=== PATIENT | male | born 1975 | race Caucasian/White ===

== ENCOUNTER 2016-09-21 13:53 | Outpatient (RCR) | payer BC ==
[~2016-09-21 13:53] MED LIST: CIPR-225 PO; CLN150C PO; HYDR-3714 PO; INDO75CA3; INSU100I14; INSU100I14 SQ; INSU100V6; INSU100V6 SQ; METR500T PO; ONDA8TAB13 PO; OXYC-197 PO; TRAM50TA2 PO
== END 2016-09-25 | disposition home or self-care (01) ==
LOC: WOUNDCARE 13:53
PROVIDERS: ATTEND Surgery
DX: E11.621 Type 2 diabetes mellitus with foot ulcer (principal); E11.42 Type 2 diabetes mellitus with diabetic polyneuropathy; L97.512 Non-pressure chronic ulcer of other part of right foot with fat layer exposed; G40.89 Other seizures
CPT/HCPCS: 11042; 15275; 29445; 87070; 87075; 87077; 87186; 87205; 99212

== ENCOUNTER → 2016-09-26 | Outpatient (CLI) | payer BC ==
--- OUTSIDE RECORDS SUMMARY | 2016-09-26 10:21 | XMS REPORT | Continuity of Care Document ---
Author Author [facility] Organization [facility] Address Unknown Phone Unavailable Allergies Active Description Code Type Severity Reaction Onset Reported/Identified Relationship to Patient Clinical Status Yes No Known Drug Allergies [id number] Drug Allergy Unknown N/ A 07/31/2015 Medications Problems Date Dx Coded Attending Type Code Diagnosis Diagnosed By 05/30/2010 Ot 882.0 05/30/2010 Ot E000.8 05/30/2010 Ot E029.9 05/30/2010 Ot E849.0 05/30/2010 Ot E920.8 05/30/2010 Ot V06.1 06/19/2012 Ot 250.00 DIAB MARLYN WO COMPL, TYPE II OR UNSPEC TY 06/19/2012 Ot 724.1 PAIN IN THORACIC SPINE 06/19/2012 Ot 737.10 KYPHOSIS NOS 06/19/2012 Ot V57.1 PHYSICAL THERAPY NEC 02/26/2013 Ammy RIVERA MD Ot 257.2 TESTICULAR HYPOFUNC NEC 02/11/2014 ASHLEY HENDRIX Ot 250.00 DIAB MARLYN WO COMPL, TYPE II OR UNSPEC TY 02/11/2014 ASHLEY HENDRIX Ot 459.81 VENOUS INSUFFICIENCY NOS 02/11/2014 ASHLEY HENDRIX Ot 682.6 CELLULITIS OF LEG 02/11/2014 ASHLEY HENDRIX Ot V58.67 LONG-TERM (CURRENT) USE OF INSULIN 04/23/2015 Ot 700 04/23/2015 Ot 721.3 04/23/2015 Ot 737.10 04/23/2015 Ot 729.5 04/23/2015 Ot 257.2 04/29/2015 GEORGE DUDLEY MD Ot 250.60 DIAB W NEURO MANIFEST, TYPE II OR UNSPEC 04/29/2015 GEORGE DUDLEY MD Ot 250.80 DIAB W OTH SPEC MANIFEST, TYPE II OR UNS 04/29/2015 GEORGE DUDLEY MD Ot 357.2 NEUROPATHY IN DIABETES 04/29/2015 GEORGE DUDLEY MD Ot 707.15 ULCER OF OTHER PART OF FOOT 04/29/2015 OCTAVIA LIU, GEORGE Ron Ot 720.0 ANKYLOSING SPONDYLITIS 05/01/2015 OCTVAIA LIU, GEORGE Ron Ot 250.60 05/01/2015 OCTAVIA LIU, GEORGE Ron Ot 250.80 05/01/2015 OCTAVIA LIU, GEORGE Ron Ot 357.2 05/01/2015 OCTAVIA LIU, GEORGE Ron Ot 707.15 05/01/2015 OCTAVIA LIU, GEORGE Ron Ot 720.0 06/17/2015 OCTAVIA LIU, GEORGE Ron Ot E11.42 06/17/2015 OCTAVIA LIU, GEORGE Ron Ot E11.621 06/17/2015 OCTAVIA LIU, GEORGE Ron Ot L97.521 06/17/2015 OCTAVIA LIU, GEORGE Ron Ot M45.2 07/30/2015 OCTAVIA LIU, GEORGE Ron Ot E11.42 TYPE 2 DIABETES MELLITUS WITH DIABETIC P 07/30/2015 OCTAVIA LIU, GEORGE Ron Ot E11.621 TYPE 2 DIABETES MELLITUS WITH FOOT ULCER 07/30/2015 OCTAVIA LIU, GEORGE Ron Ot L97.521 NON-PRS CHRONIC ULCER OTH PRT L FOOT NAVARRO 07/30/2015 OCTAVIA LIU, GEORGE Ron Ot M45.2 ANKYLOSING SPONDYLITIS OF CERVICAL REGIO 07/31/2015 Ot 257.2 07/31/2015 OCTAVIA LIU, GEORGE Ron Ot E11.42 07/31/2015 OCTAVIA LIU, GEORGE Ron Ot E11.621 07/31/2015 OCTAVIA LIU, GEORGE Ron Ot L97.521 07/31/2015 OCTAVIA LIU, GEORGE Ron Ot M45.2 07/31/2015 Ot 700 07/31/2015 Ot 721.3 07/31/2015 Ot 737.10 07/31/2015 Ot 729.5 07/31/2015 Ot 257.2 07/31/2015 OCTAVIA LIU, GEORGE Ron Ot E11.42 07/31/2015 OCTAVIA LIU, GEORGE Ron Ot E11.621 07/31/2015 OCTAVIA LIU, GEORGE Ron Ot L97.521 07/31/2015 OCTAVIA LIU, GEORGE Ron Ot M45.2 08/01/2015 QUANG LEONARDO DO Ot K35.80 UNSPECIFIED ACUTE APPENDICITIS 08/07/2015 OCTAVIA LIU, GEORGE Ron Ot E11.42 08/07/2015 OCTAVIA LIU, GEORGE Rno Ot E11.621 08/07/2015 OCTAVIA LIU, GEORGE Ron Ot L97.521 08/07/2015 OCTAVIA LIU, GEORGE Ron Ot M45.2 08/10/2015 OCTAVIA LIU, GEORGE Ron Ot E11.42 08/10/2015 OCTAVIA LIU, GEORGE Ron Ot E11.621 08/10/2015 OCTAVIA LIU, GEORGE Ron Ot L97.521 08/10/2015 OCTAVIA LIU, GEORGE Ron Ot M45.2 08/14/2015 OCTAVIA LIU, GEORGE Ron Ot E11.42 TYPE 2 DIABETES MELLITUS WITH DIABETIC P 08/14/2015 OCTAVIA LIU, GEORGE Ron Ot E11.621 TYPE 2 DIABETES MELLITUS WITH FOOT ULCER 08/14/2015 OCTAVIA LIU, GEORGE Ron Ot L97.521 NON-PRS CHRONIC ULCER OTH PRT L FOOT NAVARRO 08/14/2015 OCTAVIA LIU, GEORGE Ron Ot M45.2 ANKYLOSING SPONDYLITIS OF CERVICAL REGIO 08/17/2015 Ot 700 08/17/2015 Ot 721.3 08/17/2015 Ot 737.10 08/17/2015 Ot 729.5 08/17/2015 Ot 257.2 08/17/2015 OCTAVIA LIU, GEORGE Ron Ot E11.42 08/17/2015 OCTAVIA LIU, GEORGE Ron Ot E11.621 08/17/2015 OCTAVIA LIU, GEORGE Ron Ot L97.521 08/17/2015 OCTAVIA LIU, GEORGE Ron Ot M45.2 08/18/2015 Ot 700 08/18/2015 Ot 721.3 08/18/2015 Ot 737.10 08/18/2015 Ot 729.5 08/18/2015 Ot 257.2 08/18/2015 OCTAVIA LIU, GEORGE Ron Ot E11.42 08/18/2015 OCTAVIA LIU, GEORGE Ron Ot E11.621 08/18/2015 OCTAVIA LIU, GEORGE Ron Ot L97.521 08/18/2015 OCTAVIA LIU, GEORGE Ron Ot M45.2 07/13/2016 OCTAVIA LIU, GEORGE Ron Ot E11.42 TYPE 2 DIABETES MELLITUS WITH DIABETIC P 07/13/2016 OCTAVIA LIU, GEORGE Ron Ot E11.621 TYPE 2 DIABETES MELLITUS WITH FOOT ULCER 07/13/2016 OCTAVIA LIU, GEORGE Ron Ot L97.512 NON-PRS CHRONIC ULCER OTH PRT RIGHT FOOT 08/03/2016 Ot 729.5 PAIN IN LIMB 08/03/2016 Ot 257.2 TESTICULAR HYPOFUNC NEC 08/03/2016 OCTAVIA LIU GEORGE Ron Jeff E11.42 TYPE 2 DIABETES MELLITUS WITH DIABETIC P 08/03/2016 OCTAVIA LIU GEORGE Ron Jeff E11.621 TYPE 2 DIABETES MELLITUS WITH FOOT ULCER 08/03/2016 OCTAVIA LIU GEORGE Ron Jeff L97.512 NON-PRS CHRONIC ULCER OTH PRT RIGHT FOOT 09/14/2016 GEORGE DUDLEY MD, Ot E11.42 TYPE 2 DIABETES MELLITUS WITH DIABETIC P 09/14/2016 GEORGE DUDLEY MD Asaf Jeff E11.621 TYPE 2 DIABETES MELLITUS WITH FOOT ULCER 09/14/2016 GEORGE DUDLEY MD, Ot L97.512 NON-PRS CHRONIC ULCER OTH PRT RIGHT FOOT Procedures Results Test Result Range Bacteria identification in isolate by anaerobe culture - 06/27/16 13:14 Bacteria identification in isolate by anaerobe culture NOANA NRG Gram stain microscopy - 06/27/16 13:14 GRAM STAIN RESULT NO BACTERIA NRG Bacteria identification in wound by culture - 06/27/16 13:14 Bacteria identification in wound by culture [id number] NRG FREE TEXT EXTERNAL (NOT JK) NRG QUANTITY OF GROWTH Scant Growth NRG Bacterial susceptibility panel - 06/27/16 13:14 Oxacillin susceptibility test by minimum inhibitory concentration <= NRG Gentamicin susceptibility test by minimum inhibitory concentration <= NRG Clindamycin susceptibility test by minimum inhibitory concentration >= NRG Erythromycin susceptibility test by minimum inhibitory concentration >= NRG Trimethoprim/sulfamethoxazole susceptibility test by minimum inhibitoryconcentration <= NRG Vancomycin susceptibility test by minimum inhibitory concentration 1 NRG Levofloxacin susceptibility test by minimum inhibitory concentration 0.25 NRG Rifampin susceptibility test by minimum inhibitory concentration <= NRG Tetracycline susceptibility test by minimum inhibitory concentration <= NRG Bacterial susceptibility panel - 06/27/16 13:14 Gentamicin susceptibility test by minimum inhibitory concentration S NRG Erythromycin susceptibility test by minimum inhibitory concentration >= NRG Vancomycin susceptibility test by minimum inhibitory concentration 1 NRG Ampicillin susceptibility test by minimum inhibitory concentration <= NRG Linezolid susceptibility test by minimum inhibitory concentration 2 NRG Bacteria identification in isolate by anaerobe culture - 08/10/16 12:23 Bacteria identification in isolate by anaerobe culture NOANA NRG Gram stain microscopy - 08/10/16 12:23 GRAM STAIN RESULT NO WBC'S OR BACTERIA OBSERVED NRG Bacteria identification in wound by culture - 08/10/16 12:23 Bacteria identification in wound by culture [id number] NRG FREE TEXT EXTERNAL SENSITIVITY REPORTED 08/13 11:05 NRG QUANTITY OF GROWTH Scant Growth NRG Bacterial susceptibility panel - 08/10/16 12:23 Oxacillin susceptibility test by minimum inhibitory concentration 0.5 NRG Gentamicin susceptibility test by minimum inhibitory concentration <= NRG Clindamycin susceptibility test by minimum inhibitory concentration >= NRG Erythromycin susceptibility test by minimum inhibitory concentration >= NRG Trimethoprim/sulfamethoxazole susceptibility test by minimum inhibitoryconcentration <= NRG Vancomycin susceptibility test by minimum inhibitory concentration <= NRG Levofloxacin susceptibility test by minimum inhibitory concentration 0.25 NRG Rifampin susceptibility test by minimum inhibitory concentration <= NRG Tetracycline susceptibility test by minimum inhibitory concentration <= NRG Bacterial susceptibility panel - 08/10/16 12:23 Gentamicin susceptibility test by minimum inhibitory concentration S NRG Erythromycin susceptibility test by minimum inhibitory concentration >= NRG Vancomycin susceptibility test by minimum inhibitory concentration 1 NRG Ampicillin susceptibility test by minimum inhibitory concentration <= NRG Linezolid susceptibility test by minimum inhibitory concentration 2 NRG Encounters ACCT No. Visit Date/Time Discharge Status Pt. Type Provider Facility Loc./Unit Complaint [id number] 09/21/2016 13:53:00 2016 00:01:00 DIS Outpatient GEORGE DUDLEY MD [facility] WOUNDCARE [id number] 07/31/2015 22:30:00 2015 10:00:00 DIS Outpatient QUANG LEONARDO DO [facility] SDC APPENDICITIS [id number] 07/17/2015 09:59:00 2014 00:01:00 DIS Outpatient GEORGE DUDLEY MD [facility] WOUNDCARE [id number] 04/24/2015 10:40:00 2014 00:01:00 DIS Outpatient GEORGE DUDLEY MD [facility] WOUNDCARE [id number] 02/11/2014 11:17:00 2013 13:58:00 DIS Emergency ASHLEY HENDRIX [facility] ER RIGHT LEG REDNESS [id number] 11/28/2012 10:12:00 2012 00:01:00 DIS Outpatient Ammy RIVERA MD [facility] LAB HYPOGENDERISM [id number] 09/26/2016 00:10:00 PEN Preadmit GEORGE DUDLEY MD [facility] WOUNDCARE [id number] 08/14/2015 09:54:00 ACT Outpatient GEORGE DUDLEY MD [facility] WOUNDCARE [id number] 02/27/2013 00:00:00 Document Registration [id number] 04/26/2012 12:53:00 Document Registration [id number] 03/22/2012 09:41:00 Document Registration [id number] 01/04/2011 15:18:00 Document Registration [id number] 05/30/2010 15:28:00 Document Registration
--- NOTE | 2016-09-26 11:33 | Diagnostic Imaging Report ---
PROCEDURE: US Carotid Duplex Bilateral. TECHNIQUE: Multiple real-time grayscale images were obtained over the carotid arteries in various projections bilaterally. Additional duplex Doppler and color Doppler images were also obtained. INDICATION: Right arm numbness. Episodes of slurred speech. FINDINGS: Grayscale images demonstrate plaque along the carotid bifurcation bilaterally. Color Doppler demonstrates patency of the common, internal, and external carotid arteries on both sides. There is antegrade the flow in the vertebral artery noted bilaterally. Peak systolic velocities in the right ICA are 68, 77, and 81 cm/s from proximal/ distal and on the left side 70, 88, and 90 cm/s. ICA/CCA ratios on the right are up to 0.8 cm and on the left are up to 0.9 cm. IMPRESSION: Atherosclerotic plaque at the carotid bifurcation bilaterally with submitted underlying stenosis less than 40% bilaterally. Dictated by: Dictated on workstation # [id number]
--- NOTE | 2016-09-27 10:37 | ECHOCARDIOGRAPHY REPORT ---
PROCEDURE PHYSICIAN: BILLIE CORNEJO DATE OF PROCEDURE: 09/26/2016 TWO DIMENSIONAL ECHOCARDIOGRAM REPORT PRIMARY PHYSICIAN: OTHER PHYSICIAN: REFERRING PHYSICIAN: ORDERING PHYSICIAN: ATTENDING PHYSICIAN: Dr. Magdalene Junior FAMILY PHYSICIAN: READING PHYSICIAN: INDICATION FOR THE PROCEDURE: MEASUREMENTS DERIVED VALUES LV DIAMETER (LAX) NORMALS NORMALS Diastolic (3.6-5.2) Eject. Fract. (60%+/-6%) Systolic (2.3-3.9) Diastolic Vol. % Shortening (0.22-0.42) Systolic Vol. Aortic Root IVS THICKNESS Diastolic (0.6-1.1) LVPW THICKNESS Diastolic (0.6-1.1) LA DIAMETER Systolic (2.1-3.7) FINDINGS: 1. Sinus rhythm. 2. Left atrial dimensions are mildly enlarged. Left atrial diameter is 4.3 cm. 3. Aortic root dimensions are normal. 4. Left ventricular systolic function is preserved. LV EF is 60%. No LVH is present. 5. Wall motion is normal. 6. Right heart size and function is normal. 7. There is no evidence of pericardial effusion. 8. Diastolic function is normal. 9. IVC is not well visualized. VALVULAR STRUCTURE OF THE HEART: There is trace tricuspid regurgitation and trace mitral regurgitation. RVSP is 17 mmHg. The aortic valve and pulmonic valve do not have any pathology. CONCLUSION: 1. LV and RV size and function is normal. 2. LV EF is 60 to 65%. 3. No significant valvular heart disease. 4. Normal PA pressure. Job ID: [id number] Dictated Date: 09/26/2016 15:05:15 Robotype Operator Date: 09/27/2016 10:32:24 / summer
== END ==
LOC: RAD 10:17
PROVIDERS: ATTEND Internal Medicine
DX: I65.23 Occlusion and stenosis of bilateral carotid arteries (principal)
CPT/HCPCS: 93306; 93880

== ENCOUNTER → 2016-09-28 | Outpatient (CLI) | payer BC ==
--- OUTSIDE RECORDS SUMMARY | 2016-09-28 16:03 | XMS REPORT | Continuity of Care Document ---
Author Author [facility] Organization [facility] Address Unknown Phone Unavailable Allergies Active Description Code Type Severity Reaction Onset Reported/Identified Relationship to Patient Clinical Status Yes No Known Drug Allergies [id number] Drug Allergy Unknown N/ A 07/31/2015 Medications [...] 729.5 07/31/2015 Ot 257.2 07/31/2015 OCTAVIA LIU, EGORGE Ron Ot E11.42 07/31/2015 OCTAVIA LIU, GEORGE [...] OCTAVIA LIU, GEORGE Ron Ot E11.42 08/17/2015 OCTVAIA LIU, GEORGE Ron Ot E11.621 08/17/2015 OCTAVIA [...] 13:14 Bacteria identification in wound by culture [id number] NR FREE TEXT EXTERNAL (NOT JK) NRG [...] 12:23 Bacteria identification in wound by culture [id number] NRG FREE TEXT EXTERNAL SENSITIVITY REPORTED 08/13 [...] test by minimum inhibitory concentration 2 NRG Gram stain microscopy - 09/27/16 10:22 GRAM STAIN RESULT NO WBC'S OR BACTERIA OBSERVED NRG Encounters ACCT No. Visit Date/Time Discharge Status Pt. Type Provider Facility Loc./Unit Complaint [id number] 09/21/2016 13:53:00 2016 00:01:00 DIS Outpatient OCTAVIA LIU, GEORGE Ron [facility] WOUNDCARE [id number] 07/31/2015 22:30:00 2015 10:00:00 DIS Outpatient QUANG LEONARDO DO [facility] SDC APPENDICITIS [id number] 07/17/2015 09:59:00 2014 00:01:00 DIS Outpatient GEORGE DUDLEY MD [facility] WOUNDCARE [id number] 04/24/2015 10:40:00 2014 00:01:00 DIS Outpatient GEORGE DUDLEY MD [facility] WOUNDCARE [id number] 02/11/2014 11:17:00 2013 13:58:00 DIS Emergency ASHLEY HENDRIX [facility] ER RIGHT LEG REDNESS [id number] 11/28/2012 10:12:00 2012 00:01:00 DIS Outpatient Ammy RIVERA MD [facility] LAB HYPOGENDERISM [id number] 09/26/2016 10:17:00 ACT Outpatient ANGELA PAULSON DO [facility] RAD G54.9 [id number] 09/26/2016 00:10:00 PEN Preadmit GEORGE DUDLEY MD [facility] WOUNDCARE [id number] 08/14/2015 09:54:00 ACT Outpatient GEORGE DUDLEY MD [facility] WOUNDCARE [id number] 02/27/2013 00:00:00 Document Registration [id number] 04/26/2012 12:53:00 Document Registration [id number] 03/22/2012 09:41:00 Document Registration [id number] 01/04/2011 15:18:00 Document Registration [id number] 05/30/2010 15:28:00 Document Registration
== END ==
LOC: RAD 15:59
PROVIDERS: ATTEND Internal Medicine
DX: G45.9 Transient cerebral ischemic attack, unspecified (principal); C38.4 Malignant neoplasm of pleura; M45.9 Ankylosing spondylitis of unspecified sites in spine

== ENCOUNTER → 2016-10-12 | Outpatient (CLI) | payer BC ==
--- OUTSIDE RECORDS SUMMARY | 2016-10-12 11:08 | XMS REPORT | Continuity of Care Document ---
Author Author [facility] Organization [facility] Address Unknown Phone Unavailable Allergies Active Description Code Type Severity Reaction Onset Reported/Identified Relationship to Patient Clinical Status Yes No Known Drug Allergies [id number] Drug Allergy Unknown N/ A 07/31/2015 Medications [...] MELLITUS WITH DIABETIC P 08/03/2016 GEORGE DUDLEY MD, Ot E11.621 TYPE 2 DIABETES MELLITUS WITH FOOT ULCER 08/03/2016 GEORGE DUDLEY MD Ot L97.512 NON-PRS CHRONIC ULCER OTH PRT RIGHT FOOT 09/14/2016 GEORGE DUDLYE MD, Ot E11.42 TYPE 2 DIABETES MELLITUS [...] MELLITUS WITH FOOT ULCER 09/25/2016 GEORGE DUDLEY MD Ot G40.89 OTHER SEIZURES 09/25/2016 GEORGE DUDLEY MD Ot L97.512 NON-PRS CHRONIC ULCER OTH PRT RIGHT FOOT 09/26/2016 Ot 729.5 PAIN IN LIMB 09/26/2016 Ot 257.2 TESTICULAR HYPOFUNC NEC 09/26/2016 GEORGE DUDLEY MD Ot E11.42 TYPE 2 DIABETES MELLITUS WITH DIABETIC P 09/26/2016 GEORGE DUDLEY MD, Ot E11.621 TYPE 2 DIABETES MELLITUS WITH FOOT ULCER 09/26/2016 GEORGE DUDLEY MD Ot L97.512 NON-PRS CHRONIC ULCER OTH PRT RIGHT FOOT 09/27/2016 GEORGE DUDLEY MD Ot E11.42 TYPE 2 DIABETES MELLITUS WITH DIABETIC P 09/27/2016 GEORGE DUDLEY MD Ot E11.621 TYPE 2 DIABETES MELLITUS WITH FOOT ULCER 09/27/2016 GEORGE DUDLEY MD Ot L97.512 NON-PRS CHRONIC ULCER OTH PRT RIGHT FOOT 09/27/2016 ANGELA PAULSON DO Ot I65.23 OCCLUSION AND STENOSIS OF BILATERAL TAN 09/27/2016 ANGELA PAULSNO DO Ot I65.23 OCCLUSION AND STENOSIS OF BILATERAL TAN 09/28/2016 GEORGE DUDLEY MD Ot E11.42 TYPE 2 DIABETES MELLITUS WITH DIABETIC P 09/28/2016 GEORGE DUDLEY MD Ot E11.621 TYPE 2 DIABETES MELLITUS WITH FOOT ULCER 09/28/2016 GEORGE DUDLEY MD Ot G40.89 OTHER SEIZURES 09/28/2016 GEORGE DUDLEY MD Ot L97.512 NON-PRS CHRONIC ULCER OTH PRT RIGHT FOOT 09/28/2016 GEORGE DUDLEY MD Ot E11.42 TYPE 2 DIABETES MELLITUS WITH DIABETIC P 09/28/2016 GEORGE DUDLEY MD Ot E11.621 TYPE 2 DIABETES MELLITUS WITH FOOT ULCER 09/28/2016 GEORGE DUDLEY MD Ot L97.512 NON-PRS CHRONIC ULCER OTH PRT RIGHT FOOT 09/29/2016 PAULSON DO ANGELA Ot 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 09/29/2016 PAULSON DO ANGELA Ot G45.9 TRANSIENT CEREBRAL ISCHEMIC ATTACK, UNSP 09/29/2016 PAULSON DO ANGELA Ot M45.9 ANKYLOSING SPONDYLITIS OF UNSPECIFIED SI 09/29/2016 PAULSON DO ANGELA Ot 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 09/29/2016 PAULSON DO ANGELA Ot G45.9 TRANSIENT CEREBRAL ISCHEMIC ATTACK, UNSP 09/29/2016 PAULSON DO ANGELA Ot M45.9 ANKYLOSING SPONDYLITIS OF UNSPECIFIED SI Procedures Results Test Result Range Bacteria identification in isolate by anaerobe culture - 06/27/16 13:14 Bacteria identification in isolate by anaerobe culture NOANA NRG Gram stain microscopy - 06/27/16 13:14 GRAM STAIN RESULT NO BACTERIA NRG Bacteria identification in wound by culture - 06/27/16 13:14 Bacteria identification in wound by culture [id number] NRG FREE TEXT EXTERNAL (NOT JK) NRG [...] 12:23 Bacteria identification in wound by culture [id number] NRG FREE TEXT EXTERNAL SENSITIVITY REPORTED 08/13 [...] identification in isolate by anaerobe culture - 09/27/16 10:22 Bacteria identification in isolate by anaerobe culture NOANA NRG Gram stain microscopy - 09/27/16 10:22 GRAM STAIN RESULT NO WBC'S OR BACTERIA OBSERVED NRG Bacteria identification in wound by culture - 09/27/16 10:22 Bacteria identification in wound by culture [id number] NRG FREE TEXT EXTERNAL (NOT JK) NRG QUANTITY OF GROWTH Scant Growth NRG MRSA AGAR Screening test for MRSA is NEGATIVE (Final to follow) NRG Bacterial susceptibility panel - 09/27/16 10:22 Oxacillin susceptibility test by minimum inhibitory concentration <= NRG Gentamicin susceptibility test by minimum inhibitory concentration <= NRG Clindamycin susceptibility test by minimum inhibitory concentration >= NRG Erythromycin susceptibility test by minimum inhibitory concentration >= NRG Trimethoprim/sulfamethoxazole susceptibility test by minimum inhibitoryconcentration <= NRG Vancomycin susceptibility test by minimum inhibitory concentration 1 NRG Levofloxacin susceptibility test by minimum inhibitory concentration <= NRG Rifampin susceptibility test by minimum inhibitory concentration <= NRG Tetracycline susceptibility test by minimum inhibitory concentration <= NRG Encounters ACCT No. Visit Date/Time Discharge Status Pt. Type Provider Facility Loc./Unit Complaint [id number] 09/21/2016 13:53:00 2016 00:01:00 DIS Outpatient GEORGE DUDLEY MD [facility] WOUND[facility] [id number] 07/31/2015 22:30:00 2015 10:00:00 DIS Outpatient QUANG LEONARDO DO [facility] SDC APPENDICITIS [id number] 07/17/2015 09:59:00 2014 00:01:00 DIS Outpatient GEORGE DUDLEY MD [facility] WOUND[facility] [id number] 04/24/2015 10:40:00 2014 00:01:00 DIS Outpatient GEORGE DUDLEY MD [facility] WOUND[facility] [id number] 02/11/2014 11:17:00 2013 13:58:00 DIS Emergency ASHLEY HENDRIX [facility] ER RIGHT LEG REDNESS [id number] 11/28/2012 10:12:00 2012 00:01:00 DIS Outpatient Ammy RIVERA MD [facility] LAB HYPOGENDERISM [id number] 10/12/2016 09:44:00 ACT Outpatient GEORGE DUDLEY MD [facility] WOUND[facility]ARE [id number] 09/28/2016 15:59:00 ACT Outpatient ANGELA PAULSON DO [facility] RAD G45.9 [id number] 09/26/2016 10:17:00 ACT Outpatient ANGELA PAULSON DO [facility] RAD G54.9 [id number] 08/14/2015 09:54:00 ACT Outpatient GEORGE DUDLEY MD [facility] WOUND[facility] [id number] 02/27/2013 00:00:00 Document Registration [id number] 04/26/2012 12:53:00 Document Registration [id number] 03/22/2012 09:41:00 Document Registration [id number] 01/04/2011 15:18:00 Document Registration [id number] 05/30/2010 15:28:00 Document Registration
--- NOTE | 2016-10-12 14:48 | Diagnostic Imaging Report ---
INDICATION: Diabetic ulcers on both feet.. TECHNIQUE: Three views of the bilateral feet at 11:34 AM. CORRELATION STUDY: 09/12/2012. FINDINGS: LEFT FOOT: There is asymmetric soft tissue edema suggested about the great toe of the left foot as well as the distal aspect of the second toe. A BB was placed adjacent to the distal phalanx of the great toe. No acute bony abnormality or jordon bony destructive type change are suggested. There is pes planus alignment present. There are degenerative changes through the mid and distal tarsal bones. Prominent calcaneal spur formation. RIGHT FOOT: Marker was placed along the plantar aspect of the distal right fifth metatarsal. This osseous structure appears to be intact without evidence for acute bony abnormality or jordon bony destructive type change. There is, however, deformity at the proximal fifth metatarsal, compatible with a healed fracture. There also appear to be likely reparative healing changes noted about the base of the fourth metatarsal. There is a small lucency through the lateral cortex of the proximal shaft of the fifth metatarsal. The possibility of a new and/or stress type injury is not excluded. There is rather significant degenerative change of the mid and distal tarsal bones with some loss of normal configuration and overall appearance about the distal tarsal row. This appears a change from the prior study and may be reflective of likely developing neuropathic/Charcot foot. Prominent calcaneal spur. IMPRESSION: 1. Negative for jordon erosive type change to suggest osteomyelitis, particularly in the region of the first great toe and right fifth metatarsal. 2. Findings compatible with healing fracture deformities at the base of the fifth and fourth metatarsals of the right foot. However, there is a small area of lucency through the lateral cortex proximal right fifth metatarsal. The possibility of a stress type injury is not excluded. Correlate with any symptoms in this region. 3. 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 4. Prominent bilateral calcaneal spurring. Dictated by: Dictated on workstation # [id number]
== END ==
LOC: RAD 11:02
PROVIDERS: ATTEND Surgery
DX: S92.354D Nondisplaced fracture of fifth metatarsal bone, right foot, subsequent encounter for fracture with routine healing (principal); S92.345D Nondisplaced fracture of fourth metatarsal bone, left foot, subsequent encounter for fracture with routine healing; M19.071 Primary osteoarthritis, right ankle and foot; M19.072 Primary osteoarthritis, left ankle and foot; M77.31 Calcaneal spur, right foot; M77.32 Calcaneal spur, left foot; E11.621 Type 2 diabetes mellitus with foot ulcer; E11.42 Type 2 diabetes mellitus with diabetic polyneuropathy; L97.512 Non-pressure chronic ulcer of other part of right foot with fat layer exposed; L97.522 Non-pressure chronic ulcer of other part of left foot with fat layer exposed; X58.XXXA Exposure to other specified factors, initial encounter; Y99.8 Other external cause status

== ENCOUNTER → 2016-10-19 | Outpatient (CLI) | payer BC ==
--- NOTE | 2016-10-19 13:49 | Diagnostic Imaging Report ---
EXAMINATION: Right lower extremity duplex venous ultrasound. TECHNIQUE: DVT protocol. Multiple sonographic images with color Doppler and waveform interrogation were performed of the right lower extremity veins with compression and augmentation maneuvers. INDICATION: Right leg pain. FINDINGS: The right lower extremity veins from the groin to below the knee veins were examined with normal color-flow, compressibility and normal waveform demonstrated. The great saphenous vein is patent. IMPRESSION: No evidence of DVT in the right lower extremity. Dictated by: Dictated on workstation # [id number]
== END ==
LOC: RAD 12:50
PROVIDERS: ATTEND Internal Medicine
DX: M79.604 Pain in right leg (principal)

== ENCOUNTER 2016-10-26 14:00 | Outpatient (RCR) | payer BC ==
--- OUTSIDE RECORDS SUMMARY | 2016-09-27 09:59 | XMS REPORT | Continuity of Care Document ---
Author Author [facility] Organization [facility] Address Unknown Phone Unavailable Allergies Active Description Code Type Severity Reaction Onset Reported/Identified Relationship to Patient Clinical Status Yes No Known Drug Allergies [id number] Drug Allergy Unknown N/ A 07/31/2015 Medications [...] HENDRIX Ot 682.6 CELLULITIS OF LEG 02/11/2014 AHSLEY HENDRIX Ot V58.67 LONG-TERM (CURRENT) USE OF [...] GEORGE Ron Ot 720.0 ANKYLOSING SPONDYLITIS 05/01/2015 OCTAVIA LIU, GEORGE Ron Ot 250.60 05/01/2015 OCTAVIA [...] Ron Ot E11.42 08/07/2015 OCTAVIA LIU, GEORGE Ron Ot E11.621 08/07/2015 OCTAVIA LIU, GEORGE Ron [...] 08/03/2016 Ot 257.2 TESTICULAR HYPOFUNC NEC 08/03/2016 GEORGE DUDLEY MD Ot E11.42 TYPE 2 DIABETES MELLITUS WITH DIABETIC P 08/03/2016 GEORGE DUDLEY MD Ot E11.621 TYPE 2 DIABETES MELLITUS WITH FOOT ULCER 08/03/2016 GEORGE DUDLEY MD Ot L97.512 NON-PRS CHRONIC ULCER OTH PRT RIGHT FOOT 09/14/2016 GEORGE DUDLEY MD, Ot E11.42 TYPE 2 DIABETES MELLITUS WITH DIABETIC P 09/14/2016 GEORGE DUDLEY MD, Ot E11.621 TYPE 2 DIABETES MELLITUS WITH FOOT ULCER 09/14/2016 GEORGE DUDLEY MD Ot L97.512 NON-PRS CHRONIC ULCER OTH PRT RIGHT FOOT 09/25/2016 GEORGE DUDLEY MD, Ot E11.42 TYPE 2 DIABETES MELLITUS WITH DIABETIC P 09/25/2016 GEORGE DUDLEY MD, Ot E11.621 TYPE 2 DIABETES MELLITUS WITH FOOT ULCER 09/25/2016 GEORGE DUDLEY MD, Ot L97.512 NON-PRS CHRONIC ULCER OTH PRT RIGHT FOOT 09/26/2016 Ot 729.5 PAIN IN LIMB 09/26/2016 Ot 257.2 TESTICULAR HYPOFUNC NEC 09/26/2016 GEORGE DUDLEY MD Ot E11.42 TYPE 2 DIABETES MELLITUS WITH DIABETIC P 09/26/2016 GEORGE DUDLEY MD Ot E11.621 TYPE 2 DIABETES MELLITUS WITH FOOT ULCER 09/26/2016 GEORGE DUDLEY MD Ot L97.512 NON-PRS CHRONIC ULCER OTH PRT RIGHT FOOT Procedures Results Test Result Range Bacteria identification in isolate by anaerobe culture - 06/27/16 13:14 Bacteria identification in isolate by anaerobe culture NOANA NRG Gram stain microscopy - 06/27/16 13:14 GRAM STAIN RESULT NO BACTERIA NRG Bacteria identification in wound by culture - 06/27/16 13:14 Bacteria identification in wound by culture [id number] NR FREE TEXT EXTERNAL (NOT JK) NRG QUANTITY OF GROWTH Scant Growth NR Bacterial susceptibility panel - 06/27/16 13:14 Oxacillin [...] 12:23 Bacteria identification in wound by culture [id number] NRG FREE TEXT EXTERNAL SENSITIVITY REPORTED 08/13 [...] Status Pt. Type Provider Facility Loc./Unit Complaint [id number] 09/21/2016 13:53:00 2016 00:01:00 DIS Outpatient GEORGE DUDLEY MD [facility] WOUNDCARE [id number] 07/31/2015 22:30:00 2015 10:00:00 DIS Outpatient QUANG LEONARDO DO [facility] SDC APPENDICITIS [id number] 07/17/2015 09:59:00 2014 00:01:00 DIS Outpatient GEORGE DUDLEY MD [facility] WOUNDCARE [id number] 04/24/2015 10:40:00 2014 00:01:00 DIS Outpatient GEORGE DUDLEY MD [facility] WOUNDCARE [id number] 02/11/2014 11:17:00 2013 13:58:00 DIS Emergency ASHLEY HENDRIX [facility] ER RIGHT LEG REDNESS [id number] 11/28/2012 10:12:00 2012 00:01:00 DIS Outpatient Ammy RIVERA MD [facility] LAB HYPOGENDERISM [id number] 09/26/2016 10:17:00 ACT Outpatient ANGELA PAULSON DO [facility] RAD G54.9 [id number] 09/26/2016 00:10:00 PEN Preadmit GEORGE DUDLEY MD [facility] WOUNDCARE [id number] 08/14/2015 09:54:00 ACT Outpatient GEORGE DUDLEY MD [facility] WOUNDCARE [id number] 02/27/2013 00:00:00 Document Registration [id number] 04/26/2012 12:53:00 Document Registration [id number] 03/22/2012 09:41:00 Document Registration [id number] 01/04/2011 15:18:00 Document Registration [id number] 05/30/2010 15:28:00 Document Registration
== END 2016-10-26 16:00 | disposition home or self-care (01) ==
LOC: WOUNDCARE 14:00
PROVIDERS: ATTEND Surgery
DX: E11.621 Type 2 diabetes mellitus with foot ulcer (principal); E11.42 Type 2 diabetes mellitus with diabetic polyneuropathy; L97.512 Non-pressure chronic ulcer of other part of right foot with fat layer exposed
CPT/HCPCS: 11042; 87070; 87075; 87077; 87186; 87205; 99212

== ENCOUNTER → 2020-03-17 | Outpatient (CLI) | payer BC ==
[~2020-03-17] MED LIST changes: -OXYC-197 PO; +OXYC1TAB87 PO
--- NOTE | 2020-03-17 15:08 | Diagnostic Imaging Report ---
INDICATION: Slammed middle finger in a door 6-7 weeks ago with continued pain. TECHNIQUE: Three views of the left hand. CORRELATION STUDY: None FINDINGS: There is a small fracture along the dorsal, articular base of the distal phalanx of the middle finger. The main fracture fragment is displaced dorsally with the remainder of the main portion of the finger displaced anteriorly and slightly retracted. There is somewhat of an eroded cortically marginated appearance at the articular base. At least 6 mm of diastasis of a fragment is present. There is partial flexure deformity at the distal interphalangeal joint. Mild soft tissue edema at the distal aspect of the middle finger. The remainder of the osseous structures of the left hand is otherwise intact and unremarkable. IMPRESSION: Nonacute fracture involving the dorsal articular base of the distal phalanx of the middle finger. The interphalangeal joint appears to be held in partial flexure. This is consistent with a likely subacute fracture. There is prominent diastasis noted between the fracture lines. Dictated by: Dictated on workstation # [id number]
== END ==
LOC: RAD 14:03
PROVIDERS: ATTEND Internal Medicine
DX: S62.633A Displaced fracture of distal phalanx of left middle finger, initial encounter for closed fracture (principal)
CPT/HCPCS: 73130

== ENCOUNTER 2021-03-15 05:30 | Outpatient (RCR) | payer BC ==
[~2021-03-15] VITALS: Ht 182.9 cm; Wt 137.9 kg
[~2021-03-15 05:30] MED LIST changes: +AMLO-250 PO; +ASPI-1238 PO; +ATOR20TA66 PO; +EXEN2AUT SQ; +INDO75CA3 PO
[2021-03-16] MEDS ORDERED: PANT40TA2 PO (11:59)
== END 2021-03-15 08:47 | disposition home or self-care (01) ==
LOC: PREOP 05:30
PROVIDERS: ATTEND Surgery
DX: Z01.818 Encounter for other preprocedural examination (principal); Z20.822 Contact with and (suspected) exposure to COVID-19; Z12.11 Encounter for screening for malignant neoplasm of colon; K21.9 Gastro-esophageal reflux disease without esophagitis
CPT/HCPCS: 87635

== ENCOUNTER 2021-03-16 09:53 | Day surgery (SDC) | payer BC ==
[~2021-03-16] VITALS: Ht 183 cm; Wt 138.0 kg
[2021-03-16] MEDS ORDERED: LACTATED RINGERS 1,000 ML IV STA (09:55)
[2021-03-16] MEDS ORDERED: HURRICAINE EXT TUBE (BENZOCAINE) XX PRN (10:00)
[2021-03-16 10:15] VITALS: BP 170/95
[2021-03-16] MEDS ORDERED: MIDAZOLAM 2 MG/2 ML (VERSED) VIAL ONE (11:12)
[2021-03-16] MEDS ORDERED: PROPOFOL INJECTION 50 ML IV ONE (11:12)
[2021-03-16 11:55] VITALS: BP 141/74
--- NOTE | 2021-03-16 11:58 | Progress Note-Post Operative ---
Post-Operative Progess Note Surgeon (s)/Foreign Policy Officer (s) Surgeon SUGEY HUGHES DO Foreign Policy Officer: na Pre-Operative Diagnosis gerd ,screening colonoscopy Post-Operative Diagnosis reflux esophagitis, sigmoid polyp Procedure & Operative Findings Date of Procedure 03/16/21 Procedure Performed/Findings egd c biopsies, colonoscopy c snare polypectomy Anesthesia Type per potato chip frier Estimated Blood Loss Estimated blood loss (mL): none Specimens/Packing Specimens Removed antrum, ge, sigmoid polyp SUGEY HUGHES DO Mar 16, 2021 11:58
[2021-03-16] MEDS ORDERED: PANT40TA2 PO (11:59)
--- NOTE | 2021-03-16 11:59 | Discharge Inst-Simple/Standard ---
Discharge Inst-Standard Discharge Medications New, Converted or Re-Newed RX: Transmitted to Pharmacy Patient Instructions/Follow Up Plan of Care/Instructions/FU: Michael 3 weeks Activity as Tolerated: Yes Discharge Diet: Regular Diet SUGEY HUGHES DO Mar 16, 2021 11:59
[2021-03-16 12:00] VITALS: BP 132/70
[2021-03-16 12:30] VITALS: BP 140/70
--- NOTE | 2021-03-16 13:21 | OPERATIVE REPORT ---
DATE OF SERVICE: 03/16/2021 PREOPERATIVE DIAGNOSES: Gastroesophageal reflux disease, screening colonoscopy. POSTOPERATIVE DIAGNOSES: Reflux esophagitis, sigmoid colon polyp. PROCEDURE: EGD with biopsies, colonoscopy with snare polypectomy. SURGEON: Viraj Rodriguez DO ANESTHESIA: Per GROUND HAND. ESTIMATED BLOOD LOSS: None. COMPLICATIONS: None. INDICATIONS: The patient is a 46-year-old male with GERD and needing screening colonoscopy. He understands risks and benefits of procedure and wished to proceed with procedure. Consent was signed in the chart. DESCRIPTION OF PROCEDURE: The patient was taken to the endoscopy suite, placed in left lateral recumbent position. Timeout was performed. Scope was inserted in mouth, down the esophagus, stomach and into the duodenum without difficulty. There were no polyps, masses or ulcerations within the duodenum. Scope was slowly retracted back into stomach where it was further insufflated. Some slight erythematous changes. No polyps, masses or ulcerations. Biopsy of the antrum was obtained. Scope was retroflexed noting no other pathology. Scope was returned to its normal position, slowly withdrawn to distal esophagus, which demonstrated changes of reflux esophagitis and a linear ulceration, biopsy of this area was obtained. Scope was then slowly retracted back until completely removed, noting no other pathology. Digital rectal exam was performed. No palpable polyps, masses or ulcerations. Scope was inserted in the rectum and advanced all the way to cecum with minimal difficulty. Prep was adequate. Scope was then slowly retracted back. No polyps, masses or ulcerations in the cecum, ascending, transverse, descending colon. In sigmoid colon, a larger polyp was present, which snare polypectomy was performed. Scope was used to suction retracted out for obtaining. Scope was reinserted into the area of the sigmoid where this was removed. Scope was then slowly retracted back through the sigmoid colon without any other pathology noted. Once in the rectum, scope was retroflexed noting no other pathology. Scope was returned to its normal position, slowly withdrawn until completely removed. The patient tolerated procedure well without any complications, taken to recovery room in stable condition. RECOMMENDATIONS: The patient will follow up on pathology in 2 to 3 weeks. Any issues before that be seen at that time. We would recommend repeat colonoscopy in one year. We will start Protonix 40 mg daily. Job ID: [id number] DocumentID: [id number] Dictated Date: 03/16/2021 12:02:22 Special Events Director Date: 03/16/2021 13:21:00 Dictated By: DO RAJINDER TOVAR
--- NOTE | 2021-03-16 14:56 | Anesthesia-General Post-Op ---
MAC Patient Condition Mental Status/LOC: Same as Preop Cardiovascular: Satisfactory Nausea/Vomiting: Absent Respiratory: Satisfactory Pain: Controlled Complications: Absent Post Op Complications Complications None Follow Up Care/Instructions Patient Instructions None needed. Anesthesiology Discharge Order Discharge Order Patient is doing well, no complaints, stable vital signs, no apparent adverse anesthesia problems. No complications reported per nursing. YULISA BOSS CRNA Mar 16, 2021 14:56
== END 2021-03-16 12:30 | disposition home or self-care (01) ==
LOC: ENDO 09:53
PROVIDERS: ATTEND Surgery
DX: Z12.11 Encounter for screening for malignant neoplasm of colon (principal); D12.5 Benign neoplasm of sigmoid colon; K21.00 Gastro-esophageal reflux disease with esophagitis, without bleeding; I10 Essential (primary) hypertension; J45.909 Unspecified asthma, uncomplicated; E11.9 Type 2 diabetes mellitus without complications; E66.01 Morbid (severe) obesity due to excess calories; Z68.41 Body mass index [BMI] 40.0-44.9, adult; Z90.89 Acquired absence of other organs; Z79.899 Other long term (current) drug therapy; Z79.4 Long term (current) use of insulin; Z79.82 Long term (current) use of aspirin; Z79.1 Long term (current) use of non-steroidal anti-inflammatories (NSAID); Z79.02 Long term (current) use of antithrombotics/antiplatelets
CPT/HCPCS: 82947; 88305

== ENCOUNTER → 2021-12-28 | Outpatient (CLI) | payer BC ==
[~2021-12-28] MED LIST changes: +INDO75CA10; +INDO75CA10 PO; -INDO75CA3; -INDO75CA3 PO; +PANT40TA2 PO
== END ==
LOC: WOUNDCARE 08:52
PROVIDERS: ATTEND Family Medicine
DX: L97.512 Non-pressure chronic ulcer of other part of right foot with fat layer exposed (principal); E11.621 Type 2 diabetes mellitus with foot ulcer; E11.40 Type 2 diabetes mellitus with diabetic neuropathy, unspecified; M14.671 Charcot's joint, right ankle and foot; E66.01 Morbid (severe) obesity due to excess calories; E11.65 Type 2 diabetes mellitus with hyperglycemia
CPT/HCPCS: A6197; G0463; 99213

== ENCOUNTER → 2022-01-07 | Outpatient (CLI) | payer BC | LOC: WOUNDCARE 08:52 | PROVIDERS: ATTEND Family Medicine | DX: L97.512 Non-pressure chronic ulcer of other part of right foot with fat layer exposed (principal); E11.621 Type 2 diabetes mellitus with foot ulcer; E11.40 Type 2 diabetes mellitus with diabetic neuropathy, unspecified; M14.671 Charcot's joint, right ankle and foot; E66.01 Morbid (severe) obesity due to excess calories; E11.65 Type 2 diabetes mellitus with hyperglycemia | CPT/HCPCS: 11042; G0463 ==

== ENCOUNTER → 2022-01-14 | Outpatient (CLI) | payer BC | LOC: WOUNDCARE 10:11 | PROVIDERS: ATTEND Family Medicine | DX: L97.512 Non-pressure chronic ulcer of other part of right foot with fat layer exposed (principal); E11.621 Type 2 diabetes mellitus with foot ulcer; E11.42 Type 2 diabetes mellitus with diabetic polyneuropathy; E11.65 Type 2 diabetes mellitus with hyperglycemia; E66.01 Morbid (severe) obesity due to excess calories; M14.671 Charcot's joint, right ankle and foot; E11.52 Type 2 diabetes mellitus with diabetic peripheral angiopathy with gangrene; I96 Gangrene, not elsewhere classified | CPT/HCPCS: 11042; G0463 ==

== ENCOUNTER → 2022-01-20 | Outpatient (CLI) | payer BC | LOC: WOUNDCARE 08:09 | PROVIDERS: ATTEND Family Medicine | DX: E11.621 Type 2 diabetes mellitus with foot ulcer (principal); L97.512 Non-pressure chronic ulcer of other part of right foot with fat layer exposed; M14.671 Charcot's joint, right ankle and foot; E11.40 Type 2 diabetes mellitus with diabetic neuropathy, unspecified; E11.65 Type 2 diabetes mellitus with hyperglycemia; R07.9 Chest pain, unspecified; E11.52 Type 2 diabetes mellitus with diabetic peripheral angiopathy with gangrene; I96 Gangrene, not elsewhere classified | CPT/HCPCS: 11042; G0463 ==

== ENCOUNTER → 2022-01-27 | Outpatient (CLI) | payer BC | LOC: WOUNDCARE 08:18 | PROVIDERS: ATTEND Family Medicine | DX: E11.621 Type 2 diabetes mellitus with foot ulcer (principal); L97.512 Non-pressure chronic ulcer of other part of right foot with fat layer exposed; E11.40 Type 2 diabetes mellitus with diabetic neuropathy, unspecified; M14.671 Charcot's joint, right ankle and foot; E66.01 Morbid (severe) obesity due to excess calories; E11.65 Type 2 diabetes mellitus with hyperglycemia; R07.9 Chest pain, unspecified; R45.88 Nonsuicidal self-harm; E11.52 Type 2 diabetes mellitus with diabetic peripheral angiopathy with gangrene; I96 Gangrene, not elsewhere classified | CPT/HCPCS: 11042; G0463 ==

== ENCOUNTER → 2022-02-04 | Outpatient (CLI) | payer BC | LOC: WOUNDCARE 09:30 | PROVIDERS: ATTEND Family Medicine | DX: E11.621 Type 2 diabetes mellitus with foot ulcer (principal); E11.40 Type 2 diabetes mellitus with diabetic neuropathy, unspecified; E66.01 Morbid (severe) obesity due to excess calories; E11.65 Type 2 diabetes mellitus with hyperglycemia; R07.9 Chest pain, unspecified; L97.512 Non-pressure chronic ulcer of other part of right foot with fat layer exposed; M14.671 Charcot's joint, right ankle and foot; R45.88 Nonsuicidal self-harm; L03.115 Cellulitis of right lower limb; E11.52 Type 2 diabetes mellitus with diabetic peripheral angiopathy with gangrene; I96 Gangrene, not elsewhere classified | CPT/HCPCS: 11042; G0463 ==

== ENCOUNTER → 2022-02-04 | Outpatient (CLI) | payer BC ==
--- NOTE | 2022-02-04 15:58 | Diagnostic Imaging Report ---
EXAMINATION: Chest 1 view. HISTORY: Chest pain. COMPARISON: None available. FINDINGS: The lungs are clear without edema or pneumonia. No pleural effusion or pneumothorax. Heart size is normal. IMPRESSION: Clear lungs. Dictated by: Dictated on workstation # [id number]
== END ==
LOC: CARD 14:19
PROVIDERS: ATTEND Internal Medicine
DX: R07.9 Chest pain, unspecified (principal)
CPT/HCPCS: 71045; 93005

== ENCOUNTER → 2022-02-04 | Outpatient (CLI) | payer BC ==
--- NOTE | 2022-02-04 17:22 | Diagnostic Imaging Report ---
EXAMINATION: Right foot radiographs, 3 views. COMPARISON: None. HISTORY: 47-year-old male, chronic ulcer in the region of the right great toe. Concern for osteomyelitis. FINDINGS: There is abnormal flattening and irregular contour of the second metatarsal head. There is severe joint space loss at the second, third, and fourth tarsometatarsal articulations. There is some productive bone formation at the tarsometatarsal articulations. There is also moderate joint space loss of the fifth tarsometatarsal articulation. There is a calcaneal heel spur. There does appear to be soft tissue swelling in the region of the distal aspect of the metatarsals. There is a lucency within the volar soft tissues at the level of the first distal phalanx which could relate to site of soft tissue ulcer or a penetrating type injury. There is a punctate foreign body in the medial soft tissues at the level of the distal metaphysis of the first metatarsal. This is present since 2017. There is no identified cortical or aggressive bone destruction. There is no identified periosteal reaction. IMPRESSION: 1. No radiographic evidence of osteomyelitis. 2. Lucency in the volar soft tissues at the level of the first distal phalanx which may relate to soft tissue ulcer or penetrating type injury. Recommend correlation. 3. Small foreign body within the medial soft tissues at the level of the first metatarsal diaphysis distally which is unchanged since 2017. 4. Advanced tarsometatarsal articulations which can be seen with Charcot arthropathy or crystalline arthropathy. 5. Irregular contour and flattening of the second metatarsal head which can be seen with process such as Freiberg's infraction. Dictated by: Dictated on workstation # [id number]
== END ==
LOC: RAD 14:10
PROVIDERS: ATTEND Family Medicine
DX: L97.512 Non-pressure chronic ulcer of other part of right foot with fat layer exposed (principal); E11.621 Type 2 diabetes mellitus with foot ulcer; E11.40 Type 2 diabetes mellitus with diabetic neuropathy, unspecified; M14.671 Charcot's joint, right ankle and foot; E66.01 Morbid (severe) obesity due to excess calories; E11.65 Type 2 diabetes mellitus with hyperglycemia; L03.115 Cellulitis of right lower limb; R07.9 Chest pain, unspecified; R45.88 Nonsuicidal self-harm
CPT/HCPCS: 73630

== ENCOUNTER → 2022-02-18 | Outpatient (CLI) | payer BC ==
[~2022-02-18] MED LIST changes: +ONDA4TAB11 PO; +PROM25TA14 PO; +SUCR1TAB36 PO
== END ==
LOC: WOUNDCARE 09:25
PROVIDERS: ATTEND Family Medicine
DX: L97.512 Non-pressure chronic ulcer of other part of right foot with fat layer exposed (principal); E11.621 Type 2 diabetes mellitus with foot ulcer; E11.40 Type 2 diabetes mellitus with diabetic neuropathy, unspecified; M14.671 Charcot's joint, right ankle and foot; E66.01 Morbid (severe) obesity due to excess calories; E11.65 Type 2 diabetes mellitus with hyperglycemia; I89.0 Lymphedema, not elsewhere classified; E55.9 Vitamin D deficiency, unspecified; L24.A9 Irritant contact dermatitis due friction or contact with other specified body fluids; E11.52 Type 2 diabetes mellitus with diabetic peripheral angiopathy with gangrene; R45.88 Nonsuicidal self-harm; R07.9 Chest pain, unspecified
CPT/HCPCS: 11042; A6207; G0463

== ENCOUNTER 2022-02-22 01:22 | Emergency (ER) | payer BC ==
[~2022-02-22 01:22] MED LIST changes: -ONDA4TAB11 PO; -PROM25TA14 PO; -SUCR1TAB36 PO
--- NOTE | 2022-02-22 01:38 | ED Cough/URI ---
General Stated Complaint: DIABETIC,NAUSEA,UNSTEADY ON FEET,COUGHING UP BLOOD Source: patient, other Exam Limitations: no limitations History of Present Illness Date Seen by Provider: Feb 22, 2022 Time Seen by Provider: 01:27 Initial Comments Patient to the ER by private conveyance with chief complaint of nausea, blood- tinged emesis without fevers diarrhea or constipation. N/V 2 hours prior to arrival. On indomethacin and Protonix for Ank Spond and GERD respectively. Not on aspirin. Glucose usually runs 230-300. Thinks he ate something bad. Small flecks of blood with food in Emesis. Hx Appendectomy. Ate some Keepy rolls and cool Nomios. Nobody else ate what he ate. He says he has motion sickness with playing videogames and about once a month it will make him throw up but usually he will feel better immediately afterwards. He says he has had 2 episodes of this this week and is not feeling better despite having emesis. He has a mild headache. He has a pertinent history of insulin-dependent diabetes, ankylosing spondylitis and wound care recently for left toe wound and venous stasis edema. He had an EGD and colonoscopy with biopsies by Dr. Hughes last year. EGD showed some erosive esophagitis and colonoscopy showed a single tubular adenoma. No history of esophageal varices, liver disease. Allergies and Home Medications Allergies Coded Allergies: No Known Drug Allergies (Unverified , 07/31/15) Patient Home Medication List Home Medication List Reviewed: Yes Amlodipine Besylate (Amlodipine Besylate) 5 Mg Tablet, 5 MG PO DAILY, (Reported) Entered as Reported by: NORA QUINONES on 03/09/21 1229 Aspirin (Aspirin EC) 81 Mg Tablet.dr, 81 MG PO DAILY, (Reported) Entered as Reported by: NORA QUINONES on 03/09/21 1229 Atorvastatin Calcium (Atorvastatin Calcium) 20 Mg Tablet, 20 MG PO, (Reported) Entered as Reported by: NORA QUINONES on 03/09/21 122 Exenatide Microspheres (Bydureon Bcise) 2 Mg/0.85 Ml Auto.injct, 2 MG SQ UD, (Reported) Entered as Reported by: NORA QUINONES on 03/09/21 1229 Indomethacin (Indomethacin) 75 Mg Capsule.er, 75 MG PO DAILY, (Reported) Entered as Reported by: NORA CELESTE on 03/09/21 1229 Insulin Aspart (Novolog Pen) 100 Unit/1 Ml Insuln.pen, 7 UNITS SQ AC PRN for BID, (Reported) Entered as Reported by: CHELSEY CERSPO on 02/11/14 1127 Insulin Glargine,Hum.rec.anlog (Lantus) 100 Unit/1 Ml Vial, 30 UNIT SQ HS, (Reported) Entered as Reported by: CHELSEY CRESPO on 02/11/14 1127 Pantoprazole Sodium (Protonix) 40 Mg Tablet.dr, 40 MG PO DAILY Prescribed by: SUGEY HUGHES on 03/16/21 1159 Review of Systems Review of Systems Constitutional: No chills, No diaphoresis EENTM: No ear discharge, No ear pain Respiratory: No cough, No short of breath Cardiovascular: No chest pain, No edema, No palpitations Gastrointestinal: No abdominal pain, No nausea, No vomiting Musculoskeletal: No back pain, No joint pain All Other Systems Reviewed Negative Unless Noted: Yes Past Imgepyq-Jeuaxr-Pwcynj Hx Patient Social History Tobacco Use?: No Use of E-Cig and/or Vaping dev: No Alcohol Use?: No Immunizations Up To Date Tetanus Booster (TDap): Less than 5yrs Seasonal Allergies Seasonal Allergies: No Past Medical History Surgeries: Yes (HAND, CYST ON BACK) Appendectomy Respiratory: Yes (CHILDHOOD ASTHMA) Chronic Bronchitis Cardiac: No Neurological: No Reproductive Disorders: No Gastrointestinal: No Musculoskeletal: Yes Arthritis Endocrine: Yes Diabetes, Insulin dep Cataract Cancer: No Psychosocial: No Integumentary: No Blood Disorders: No Family Medical History Alzheimer's disease GRANDFATHER FH: brain tumor G8 SISTER FH: thyroid cancer G8 BROTHER Physical Exam Vital Signs - First Documented 02/22/22 02/22/22 01:40 02:21 Temp 37.0 Pulse 84 Resp 18 B/P (MAP) 197/104 (135) Pulse Ox 98 O2 Delivery Room Air Capillary Refill : Height: 6'0.00" Weight: 264lbs. 0.0oz. 119.658998sl; 41.20 BMI Method:Stated General Appearance: WD/WN, mild distress Eyes: Bilateral Eye Normal Inspection, Bilateral Eye PERRL, Bilateral Eye EOMI HEENT: PERRL/EOMI, normal ENT inspection; No pharynx normal (dry) Neck: full range of motion, supple, normal inspection Respiratory: lungs clear, normal breath sounds, no respiratory distress, no accessory muscle use Cardiovascular: normal peripheral pulses, regular rate, rhythm Gastrointestinal: normal bowel sounds, non tender, soft, no organomegaly Extremities: normal inspection, normal capillary refill Neurologic/Psychiatric: alert, normal mood/affect, oriented x 3 Skin: normal color, warm/dry Progress/Results/Core Measures Suspected Sepsis SIRS Temperature: Pulse: Respiratory Rate: Laboratory Tests 02/22/22 01:40: White Blood Count 7.5 Blood Pressure / Mean: Laboratory Tests 02/22/22 01:40: Creatinine 1.52H, Platelet Count 249, Total Bilirubin 0.5 Results/Orders Lab Results Laboratory Tests Test 02/22/22 01:40 02/22/22 01:41 02/22/22 01:50 02/22/22 02:06 Range/Units White Blood Count 7.5 4.3-11.0 10^3/uL Red Blood Count 4.16 L 4.30-5.52 10^6/uL Hemoglobin 13.0 L 13.3-17.7 g/dL Hematocrit 37 L 40-54 % Mean Corpuscular Volume 90 80-99 fL Mean Corpuscular Hemoglobin 31 25-34 pg Mean Corpuscular Hemoglobin Concent 35 32-36 g/dL Red Cell Distribution Width 12.0 10.0-14.5 % Platelet Count 249 130-400 10^3/uL Mean Platelet Volume 9.9 9.0-12.2 fL Immature Granulocyte % (Auto) 1 % Neutrophils (%) (Auto) 70 42-75 % Lymphocytes (%) (Auto) 20 12-44 % Monocytes (%) (Auto) 7 0-12 % Eosinophils (%) (Auto) 2 0-10 % Basophils (%) (Auto) 1 0-10 % Neutrophils # (Auto) 5.3 1.8-7.8 10^3/uL Lymphocytes # (Auto) 1.5 1.0-4.0 10^3/uL Monocytes # (Auto) 0.5 0.0-1.0 10^3/uL Eosinophils # (Auto) 0.1 0.0-0.3 10^3/uL Basophils # (Auto) 0.0 0.0-0.1 10^3/uL Immature Granulocyte # (Auto) 0.1 0.0-0.1 10^3/uL Sodium Level 136 135-145 MMOL/L Potassium Level 4.1 3.6-5.0 MMOL/L Chloride Level 104 98-107 MMOL/L Carbon Dioxide Level 21 21-32 MMOL/L Anion Gap 11 5-14 MMOL/L Blood Urea Nitrogen 22 H 7-18 MG/DL Creatinine 1.52 H 0.60-1.30 MG/DL Estimat Glomerular Filtration Rate 57 BUN/Creatinine Ratio 14 Glucose Level 280 H 70-105 MG/DL Calcium Level 9.2 8.5-10.1 MG/DL Corrected Calcium 9.3 8.5-10.1 MG/DL Total Bilirubin 0.5 0.1-1.0 MG/DL Aspartate Amino Transf (AST/SGOT) 22 5-34 U/L Alanine Aminotransferase (ALT/SGPT) 32 0-55 U/L Alkaline Phosphatase 125 40-136 U/L C-Reactive Protein High Sensitivity 0.37 0.00-0.50 MG/DL Total Protein 7.6 6.4-8.2 GM/DL Albumin 3.9 3.2-4.5 GM/DL Lipase 35 8-78 U/L Beta-Hydroxybutyrate (Chem panel) 0.23 0.00-0.27 MMOL/L SARS-CoV-2 RNA (RT-PCR) Not Detected Not Detecte Glucometer 254 H 70-110 MG/DL Urine Color YELLOW Urine Clarity CLEAR Urine pH 5.5 5-9 Urine Specific [place] >=1.030 1.016-1.022 Urine Protein 3+ H NEGATIVE Urine Glucose (UA) 3+ H NEGATIVE Urine Ketones NEGATIVE NEGATIVE Urine Nitrite NEGATIVE NEGATIVE Urine Bilirubin NEGATIVE NEGATIVE Urine Urobilinogen 0.2 < = 1.0 MG/DL Urine Leukocyte Esterase NEGATIVE NEGATIVE Urine RBC (Auto) TRACE-I H NEGATIVE Urine RBC RARE /HPF Urine WBC NONE /HPF Urine Squamous Epithelial Cells 0-2 /HPF Urine Crystals NONE /LPF Urine Bacteria NEGATIVE /HPF Urine Casts PRESENT /LPF Urine Hyaline Casts 5-10 H /LPF Urine Mucus MODERATE H /LPF Urine Culture Indicated NO My Orders Orders - MICHAEL PARKER Ed Iv/Invasive Line Start (02/22/22 01:34) Ns Iv 500 Ml (Sodium Chloride 0.9%) (02/22/22 01:45) Ondansetron Injection (Zofran Injectio (02/22/22 01:45) Covid 19 Inhouse Test (02/22/22 01:34) Cbc With Automated Diff (02/22/22 01:34) Comprehensive Metabolic Panel (02/22/22 01:34) Hs C Reactive Protein (02/22/22 01:34) Chest 1 View, Ap/Pa Only (02/22/22 01:34) Ed Iv/Invasive Line Start (02/22/22 01:47) Ns Iv 1000 Ml (Sodium Chloride 0.9%) (02/22/22 02:00) Pantoprazole Injection (Protonix Injecti (02/22/22 02:00) Accucheck Stat ONCE (02/22/22 01:48) Ua Culture If Indicated (02/22/22 01:50) Lipase (02/22/22 01:40) Beta Hydroxybutyrate (02/22/22 01:40) Promethazine Injection (Phenergan Injec (02/22/22 02:15) Medications Given in ED Current Medications Medications Dose Ordered Sig/Sheree Route Start Time Stop Time Status Last Admin Dose Admin Ondansetron HCl 8 mg ONCE ONCE IVP 02/22/22 01:45 02/22/22 01:47 DC 02/22/22 01:46 8 MG Pantoprazole 40 mg ONCE ONCE IV 02/22/22 02:00 02/22/22 02:01 DC 02/22/22 01:51 40 MG Promethazine HCl 25 mg ONCE ONCE IVP 02/22/22 02:15 02/22/22 02:16 DC 02/22/22 02:18 25 MG Sodium Chloride 500 ml @ 0 mls/hr Q0M ONCE IV 02/22/22 01:45 02/22/22 01:47 DC 02/22/22 01:46 0 MLS/HR Vital Signs/I&O 02/22/22 02/22/22 01:40 02:21 Temp 37.0 Pulse 84 79 Resp 18 18 B/P (MAP) 197/104 (135) 178/92 Pulse Ox 98 97 O2 Delivery Room Air Capillary Refill : Progress Note : Time: 01:54 Progress Note We will start with 8 mg Zofran, 40 mg Protonix, 1500 cc of fluid and check some labs including a lipase. We will check a urine and beta hydroxybutyrate. He does not have a history of DKA and is not having any Kussmaul breathing. Departure Impression Primary Impression: Gastroenteritis Additional Impression: Esophagitis Disposition: HOME, SELF-CARE Condition: Stable Departure-Patient Inst. Decision time for Depature: 02:44 Referrals: SUGEY HUGHES MINDI DO (PCP/Family) Primary Care Physician Patient Instructions: Gastritis (DC) Add. Discharge Instructions: Drink plenty of fluids, stick to a bland diet until your symptoms improve. Ondansetron 1 tablet every 6 hours as needed for nausea and/or vomiting. If you are still having nausea 30 minutes later then take a second tablet. Phenergan 1 tablet every 6 hours as needed for breakthrough nausea or vomiting. You may take it with a tablet of Benadryl to increase its effectiveness. Carafate 1 tablet half an hour prior to meals and at bedtime for a total of 4 times a day for the next 2 weeks. This will help align the esophagus and stomach with protective layer against the acid. Continue to take your Protonix as prescribed. Follow-up with your primary care provider if you are not seeing improvement in 2 to 3 days. Return to the ER for intractable symptoms. Scripts Sucralfate (Carafate) 1 Gram Tablet 1 GM PO QIDACHS for 14 Days, #56 TAB 0 Refills Prov: MICHAEL PARKER 02/22/22 Promethazine HCl (Promethazine Tablet) 25 Mg Tablet 25 MG PO Q6H PRN for NAUSEA/VOMITING, #10 TAB 0 Refills Prov: MICHAEL PARKER 02/22/22 Ondansetron (Ondansetron Odt) 4 Mg Tab.rapdis 4-8 MG PO Q6H PRN for NAUSEA/VOMITING, #20 TAB 0 Refills Prov: MICHAEL PARKER 02/22/22 Copy Copies To 1: SUGEY UHGHES TITUS J Feb 22, 2022 01:38
[2022-02-22 01:40] VITALS: BP 197/104
[2022-02-22 01:45] LABS: BASOPHILS % (AUTO) 1 % (0-10); EOSINOPHILS # (AUTO) 0.1 10^3/uL (0.0-0.3); EOSINOPHILS % (AUTO) 2 % (0-10); HEMATOCRIT 37 % (40-54); LYMPHOCYTES # (AUTO) 1.5 10^3/uL (1.0-4.0); LYMPHOCYTES % (AUTO) 20 % (12-44); MEAN CORPUSCULAR HEMOGLOBIN 31 pg (25-34); MEAN CORPUSCULAR HGB CONC 35 g/dL (32-36); MEAN CORPUSCULAR VOLUME 90 fL (80-99); MEAN PLATELET VOLUME 9.9 fL (9.0-12.2); MONOCYTES # (AUTO) 0.5 10^3/uL (0.0-1.0); MONOCYTES % (AUTO) 7 % (0-12); NEUTROPHILS # (AUTO) 5.3 10^3/uL (1.8-7.8); NEUTROPHILS % (AUTO) 70 % (42-75); PLATELET COUNT 249 10^3/uL (130-400); WHITE BLOOD COUNT 7.5 10^3/uL (4.3-11.0)
[2022-02-22] MEDS ORDERED: NS IV 500 ML 500 ML IV ONE (01:45)
[2022-02-22] MEDS ORDERED: ONDANSETRON 4 MG/2 ML (SDV) Z0FRAN IVP ONE (01:45)
[2022-02-22 01:55] LABS: ALBUMIN 3.9 GM/DL (3.2-4.5); POTASSIUM 4.1 MMOL/L (3.6-5.0)
[2022-02-22 01:56] LABS: CALCIUM 9.2 MG/DL (8.5-10.1)
[2022-02-22 01:58] LABS: TOTAL PROTEIN 7.6 GM/DL (6.4-8.2)
[2022-02-22 01:59] LABS: BILIRUBIN,TOTAL 0.5 MG/DL (0.1-1.0)
[2022-02-22] MEDS ORDERED: NS IV 1000 ML 1,000 ML IV SCH (02:00)
[2022-02-22] MEDS ORDERED: PANTOPRAZOLE 40 MG (PROTONIX) VIAL IV ONE (02:00)
[2022-02-22 02:01] LABS: CREATININE SERUM 1.52 MG/DL (0.60-1.30)
[2022-02-22 02:09] LABS: BILIRUBIN,URINE NEGATIVE (NEGATIVE); CLARITY,URINE CLEAR; COLOR,URINE YELLOW; GLUCOSE, URINE (UA) 3+ (NEGATIVE); KETONES,URINE NEGATIVE (NEGATIVE); LEUKOCYTE ESTERASE ,URINE NEGATIVE (NEGATIVE); NITRITE,URINE NEGATIVE (NEGATIVE); PH,URINE 5.5 (5-9); PROTEIN,URINE 3+ (NEGATIVE)
[2022-02-22] MEDS ORDERED: PROMETHAZINE INJ 25 MG/ML (PHENERGAN) AMP IVP ONE (02:15)
[2022-02-22 02:16] LABS: BACTERIA,URINE NEGATIVE /HPF; RBC,URINE RARE /HPF; SQUAMOUS EPITHELIAL CELL,UR 0-2 /HPF
[2022-02-22] MEDS ORDERED: ONDA4TAB11 PO (02:49)
[2022-02-22] MEDS ORDERED: PROM25TA14 PO (02:49)
[2022-02-22] MEDS ORDERED: SUCR1TAB36 PO (02:49)
== END 2022-02-22 02:57 | disposition home or self-care (01) ==
LOC: EDUNIT# 01:22 → ER 01:25
DX: K52.9 Noninfective gastroenteritis and colitis, unspecified (principal); K20.90 Esophagitis, unspecified without bleeding; E11.9 Type 2 diabetes mellitus without complications; K21.9 Gastro-esophageal reflux disease without esophagitis; Z90.49 Acquired absence of other specified parts of digestive tract; Z79.4 Long term (current) use of insulin; Z79.899 Other long term (current) drug therapy; Z20.822 Contact with and (suspected) exposure to COVID-19
CPT/HCPCS: 36415; 80053; 81000; 82010; 82947; 83690; 85025; 86141; 87636

== ENCOUNTER → 2022-02-25 | Outpatient (CLI) | payer BC ==
[~2022-02-25] MED LIST changes: +ONDA4TAB11 PO; +PROM25TA14 PO; +SUCR1TAB36 PO
== END ==
LOC: WOUNDCARE 09:21
PROVIDERS: ATTEND Family Medicine
DX: L97.512 Non-pressure chronic ulcer of other part of right foot with fat layer exposed (principal); E11.621 Type 2 diabetes mellitus with foot ulcer; E11.40 Type 2 diabetes mellitus with diabetic neuropathy, unspecified; M14.671 Charcot's joint, right ankle and foot; E66.01 Morbid (severe) obesity due to excess calories; E11.65 Type 2 diabetes mellitus with hyperglycemia; I89.0 Lymphedema, not elsewhere classified; E55.9 Vitamin D deficiency, unspecified; E11.52 Type 2 diabetes mellitus with diabetic peripheral angiopathy with gangrene; R45.88 Nonsuicidal self-harm
CPT/HCPCS: 11042; G0463

== ENCOUNTER → 2022-03-03 | Outpatient (CLI) | payer BC | LOC: WOUNDCARE 14:55 | PROVIDERS: ATTEND Family Medicine | DX: E11.621 Type 2 diabetes mellitus with foot ulcer (principal); E11.52 Type 2 diabetes mellitus with diabetic peripheral angiopathy with gangrene; E11.40 Type 2 diabetes mellitus with diabetic neuropathy, unspecified; E11.610 Type 2 diabetes mellitus with diabetic neuropathic arthropathy; E66.01 Morbid (severe) obesity due to excess calories; E11.65 Type 2 diabetes mellitus with hyperglycemia; E55.9 Vitamin D deficiency, unspecified; I89.0 Lymphedema, not elsewhere classified; I96 Gangrene, not elsewhere classified; L97.512 Non-pressure chronic ulcer of other part of right foot with fat layer exposed; R45.88 Nonsuicidal self-harm; Z68.41 Body mass index [BMI] 40.0-44.9, adult | CPT/HCPCS: 87070; 87077; 87186; 87205; G0463; 99212 ==

== ENCOUNTER → 2022-03-11 | Outpatient (CLI) | payer BC | LOC: WOUNDCARE 09:21 | PROVIDERS: ATTEND Family Medicine | DX: E11.621 Type 2 diabetes mellitus with foot ulcer (principal); L98.492 Non-pressure chronic ulcer of skin of other sites with fat layer exposed; E11.52 Type 2 diabetes mellitus with diabetic peripheral angiopathy with gangrene; I96 Gangrene, not elsewhere classified; E11.40 Type 2 diabetes mellitus with diabetic neuropathy, unspecified; E11.610 Type 2 diabetes mellitus with diabetic neuropathic arthropathy; E66.01 Morbid (severe) obesity due to excess calories; E11.65 Type 2 diabetes mellitus with hyperglycemia; I89.0 Lymphedema, not elsewhere classified; E55.9 Vitamin D deficiency, unspecified; M86.171 Other acute osteomyelitis, right ankle and foot; B95.61 Methicillin susceptible Staphylococcus aureus infection as the cause of diseases classified elsewhere; R45.88 Nonsuicidal self-harm; Z68.41 Body mass index [BMI] 40.0-44.9, adult | CPT/HCPCS: A6207; G0463; 99211 ==

== ENCOUNTER 2022-03-16 05:29 | Outpatient (CLI) | payer BC ==
[~2022-03-16] VITALS: Ht 180.3 cm; Wt 134.0 kg
[~2022-03-16 05:29] MED LIST changes: -ACHD5005 PO; -CHOL-34 PO; -INSU100I55 SQ; -INSU100I74 SQ; -LNZ600T PO; -OLME40TA18 PO; -PANT40TA52 PO; -SUCR1TAB PO
[2022-03-16] MEDS ORDERED: OLME40TA18 PO (10:23)
[2022-03-16] MEDS ORDERED: SUCR1TAB PO (10:23)
[2022-03-16] MEDS ORDERED: INSU100I74 SQ (10:23)
[2022-03-16] MEDS ORDERED: PANT40TA52 PO (10:23)
[2022-03-16] MEDS ORDERED: CHOL-34 PO (10:23)
[2022-03-16] MEDS ORDERED: INSU100I55 SQ (10:23)
[2022-03-16] MEDS ORDERED: LNZ600T PO (10:23)
== END 2022-03-16 10:31 | disposition home or self-care (01) ==
LOC: PREOP 05:29
PROVIDERS: ATTEND Podiatrist Foot & Ankle Surgery
DX: Z01.818 Encounter for other preprocedural examination (principal); M86.8X7 Other osteomyelitis, ankle and foot

== ENCOUNTER → 2022-03-16 | Outpatient (CLI) | payer BC ==
[~2022-03-16] MED LIST changes: +ACHD5005 PO; +CHOL-34 PO; +INSU100I55 SQ; +INSU100I74 SQ; +LNZ600T PO; +OLME40TA18 PO; +PANT40TA52 PO; +SUCR1TAB PO
== END ==
LOC: WOUNDCARE 13:24
PROVIDERS: ATTEND Family Medicine
DX: L97.512 Non-pressure chronic ulcer of other part of right foot with fat layer exposed (principal); E11.621 Type 2 diabetes mellitus with foot ulcer; E11.40 Type 2 diabetes mellitus with diabetic neuropathy, unspecified; M14.671 Charcot's joint, right ankle and foot; E66.01 Morbid (severe) obesity due to excess calories; E11.65 Type 2 diabetes mellitus with hyperglycemia; I89.0 Lymphedema, not elsewhere classified; E55.9 Vitamin D deficiency, unspecified; M86.171 Other acute osteomyelitis, right ankle and foot; B95.62 Methicillin resistant Staphylococcus aureus infection as the cause of diseases classified elsewhere; R45.88 Nonsuicidal self-harm
CPT/HCPCS: 99212

== ENCOUNTER 2022-03-18 11:30 | Day surgery (SDC) | payer BC ==
[~2022-03-18] VITALS: Ht 180 cm; Wt 134.0 kg
[~2022-03-18 11:30] MED LIST changes: +CHOL-34 PO; +INSU100I55 SQ; +INSU100I74 SQ; +LNZ600T PO; +OLME40TA18 PO; +PANT40TA52 PO; +SUCR1TAB PO
[2022-03-18] MEDS ORDERED: ceFAZolin INJECTION 1,000 MG VIAL IV ONE (11:45)
[2022-03-18] MEDS ORDERED: LACTATED RINGERS 1,000 ML IV PRN (11:45)
[2022-03-18 12:33] VITALS: BP 97/76
[2022-03-18] MEDS ORDERED: fentaNYL INJ 100 MCG/2 ML AMP ONE (12:36)
[2022-03-18] MEDS ORDERED: PROPOFOL INJECTION 50 ML IV ONE ×2 (12:36→13:29)
[2022-03-18] MEDS ORDERED: MIDAZOLAM 2 MG/2 ML (VERSED) VIAL ONE (12:36)
--- NOTE | 2022-03-18 12:53 | Progress Note-Pre Operative ---
Pre-Operative Progress Note Date of Available H&P: Mar 18, 2022 Date H&P Reviewed: Mar 18, 2022 Time H&P Reviewed: 12:53 Pre-Operative Diagnosis: Osteomyelitis right hallux SELENA WILLIS DPDavid Mar 18, 2022 12:53
[2022-03-18] MEDS ORDERED: LIDOCAINE 1% INJ 20 ML VIAL ONE (12:54)
[2022-03-18] MEDS ORDERED: BUPIVACAINE 0.25% 30 ML (SENSORCAINE) VIAL ONE (12:55)
[2022-03-18 14:08] VITALS: BP 91/59
--- NOTE | 2022-03-18 14:14 | Progress Note-Post Operative ---
Post-Operative Progess Note Surgeon (s)/Senior Solutions Consultant (s) Surgeon SELENA WILLIS DPM Senior Solutions Consultant: none Pre-Operative Diagnosis Osteomyelitis right hallux Post-Operative Diagnosis same Procedure & Operative Findings Date of Procedure 03/18/22 Procedure Performed/Findings Amputation of the right hallux Anesthesia Type MAC Estimated Blood Loss Estimated blood loss (mL): Minimal Specimens/Packing Specimens Removed Right hallux, proximal and distal phalanx SELENA WILLIS DPM Mar 18, 2022 14:14
[2022-03-18] MEDS ORDERED: HYDROcodone/APAP 5 MG/325 MG (LORTAB) TAB PO PRN (14:15)
[2022-03-18] MEDS ORDERED: fentaNYL INJ 100 MCG/2 ML AMP IVP ONE (14:15)
[2022-03-18] MEDS ORDERED: LACTATED RINGERS 1,000 ML IV SCH (14:15)
[2022-03-18] MEDS ORDERED: MEPERIDINE (DEMEROL) INJ 50 MG/ML IVP ONE (14:15)
[2022-03-18] MEDS ORDERED: morphine INJ 10 MG/ML 1ML (SYR OR VIAL) IVP ONE (14:15)
[2022-03-18] MEDS ORDERED: ONDANSETRON 4 MG/2 ML (SDV) Z0FRAN IVP PRN (14:15)
[2022-03-18] MEDS ORDERED: HYDROmorphone 2 MG/ML VIAL (DILAUDID) IV ONE (14:15)
--- NOTE | 2022-03-18 14:15 | Anesthesia-General Post-Op ---
General Patient Condition Mental Status/LOC: Same as Preop Cardiovascular: Satisfactory Nausea/Vomiting: Absent Respiratory: Satisfactory Pain: Controlled Complications: Absent Post Op Complications Complications None Follow Up Care/Instructions Patient Instructions None needed. Anesthesia/Patient Condition Patient Condition Patient is doing well, no complaints, stable vital signs, no apparent adverse anesthesia problems. No complications reported per nursing. DANY MIRAMONTES CRNA Mar 18, 2022 14:15
[2022-03-18] MEDS ORDERED: ACHD5005 PO (14:22)
[2022-03-18 14:30] VITALS: BP 120/67
[2022-03-18 14:40] VITALS: BP 123/68
[2022-03-18 14:49] VITALS: BP 161/101
[2022-03-18 15:35] VITALS: BP 161/101
--- NOTE | 2022-03-18 15:48 | Physical Therapy Ortho Eval ---
PT Orthopedic Evaluation Type of Surgery Prior Level of Function Current Living Status: Spouse Locomotion (Upon Admit): Independent Established Durable Medical Eq: Crutches Subjective Subjective Patient sitting at the edge of the bed upon PT arrival, agreeable to treatment. Entry Into Home: Stairs With Railing Motor Control Motor Control: Motor Control WNL ROM ROM: WFL, except focal deficit Strength Strength: WFL Transfer SCALE: Activities may be completed with or without assistive devices. 3-Ddnohibkts-pabxuyu completes the activity by him/herself with no assistance from a helper. 5-Set-up or Clean-up Assistance-helper sets up or cleans up; patient completes activity. [place] assists only prior to or following the activity. 4-Supervision or Touching Assistance-helper provides verbal cues and/or touching/steadying and/or contact guard assistance as patient completes activity. Assistance may be provided throughout the activity or intermittently. 3-Partial/Moderate Assistance-helper does LESS THAN HALF the effort. [place] lifts, holds or supports trunk or limbs, but provides less than half the effort. 2-Substantial/Maximal Assistance-helper does MORE THAN HALF the effort. [place] lifts or holds trunk or limbs and provides more than half the effort. 7-[place]-ktvsym does ALL the effort. Patient does none of the effort to compl ete the activity. Or, the assistance of 2 or more helpers is required for the patient to complete the activity. If activity was not attempted, code reason: 7-Patient Refused. 9-Not Applicable-not attempted and the patient did not perform the activity before the current illness, exacerbation or injury. 10-Not Attempted due to Environmental Limitations-(lack of equipment, weather restraints, etc.). 88-Not Attempted due to Medical Conditions or Safety Concerns. Transfers (B, C, W/C) (QC): 6 Gait Gait Assistive Device: Crutches Right Lower Extremity: Right Weight Bearing Status RLE: Partial Weight Bearing Left Lower Extremity: Left Weight Bearing Status LLE: Full Weight Bearing Gait (QC): 5 Distance (QC): 3=788-63 ft Distance: 50 Gait Level of Assist: 5 Summary/Comments Patient ascends/descends 1 step x 4 with CGA and verbal cues. Treatment Rendered Treatment: Gait Train, Step Train Assessment/Goals Goal Time Frame: 1 Visit Safe Ambulation: Yes Plan Treatment Plan: Discharge Time Time In: 153 Time Out: 1540 Total Billed Treatment Time: 10 Billed Treatment Time Visit, ANTON ARMSTRONG PT Mar 18, 2022 15:48
--- NOTE | 2022-03-18 17:18 | Diagnostic Imaging Report ---
INDICATION: Postop right foot surgery. EXAMINATION: AP and lateral views of the right foot were obtained. There has been amputation of the 1st digit at the level of the proximal aspect of the 1st proximal phalanx. There is degenerative change of the 2nd MTP joint and diffuse degenerative change throughout the remaining digits. There is chronic change of the proximal aspects of the 2nd through 5th metatarsals, questioned old injury. There is plantar calcaneal spurring. IMPRESSION: Diffuse chronic changes. Status post amputation of 1st digit, as above, with no unexpected foreign body. Dictated by: Dictated on workstation # [id number]
--- NOTE | 2022-03-19 00:39 | OPERATIVE REPORT ---
DATE OF SERVICE: 03/18/2022 SURGEON: Belen Willis DPM. PREOPERATIVE DIAGNOSIS: Osteomyelitis, right hallux. POSTOPERATIVE DIAGNOSIS: Osteomyelitis, right hallux. ANESTHESIA: Monitored anesthesia care. HEMOSTASIS: Pneumatic ankle tourniquet at 250 mmHg. INDICATIONS: This 47-year-old male presents with a chronic wound to the right great toe. The x-rays and evaluation indicates osteomyelitis of the right hallux. He is willing to proceed after risks and complications were discussed at length. No guarantees were extended to the patient and he understands the consequences of the procedure as well as an action. DESCRIPTION OF PROCEDURE: The patient was brought back to the operating table, placed in secure supine position. Appropriate timeout was performed. Local anesthetic was induced with a 20 mL of 1:1 mixture of 1% Xylocaine and 0.25% Marcaine injected in a Moya block. The right foot was prepped and draped in normal sterile manner after an ankle tourniquet was applied. The right foot was then elevated, allowed to exsanguinate, after which the tourniquet was inflated to 250 mmHg. Attention was then directed to the right hallux where a racquet-type incision was created. The medial incision was the long end and extended around the dorsal and plantar aspect of the mid diaphysis of the proximal phalanx extending to the lateral aspect of the hallux at the webspace. With this incision, the distal phalanx was disarticulated with lateral medial collateral ligaments released as well as the flexor and extensor tendons. It was evident that this specimen had significant osseous issues. A portion of the bone was sent for gross and microscopic evaluation after a small sample was taken of bone for culture and sensitivities. Dissection carried out proximally along the proximal phalanx. The bone appeared to be intact. The surrounding soft tissue to the proximal phalanx was in question with some necrotic tissue. No purulence was identified. Next, utilizing a power sagittal saw, the majority of the proximal phalanx was removed from the foot. This was sent for gross and microscopic evaluation as well. The remaining wound was flushed with copious amounts of normal saline under power irrigation. Swab culture was then taken to confirm a clean base prior to closure. Closure was then performed with 4-0 Prolene in a simple interrupted type stitch. The skin edges came together without any significant skin tension. The tourniquet was released noting appropriate cap refill time to all remaining digits of the right foot as well as the amputation site of the right hallux. Postoperative dressing consisted of Betadine soaked Adaptic, sterile 4 x 4, sterile Kerlix all secured with a Coban wrap. The patient tolerated the anesthesia and procedure well and was transported from the operating room to the recovery area with vital signs stable and vascular status intact to remaining right foot. Postoperatively, the patient is to continue with his oral antibiotic as well as he was given a prescription for hydrocodone. We will see him back in the office in approximately 1-week period of time or sooner if necessary. In the meantime, he is to be nonweightbearing on the right forefoot and heel pressure only on the right. Job ID: [id number] DocumentID: [id number] Dictated Date: 03/18/2022 14:29:43 Vacuum Closing Machine Operator Date: 03/19/2022 00:39:12 Dictated By: BELEN WILLIS DPM
== END 2022-03-18 15:44 | disposition home or self-care (01) ==
LOC: SDC 11:30
PROVIDERS: ATTEND Podiatrist Foot & Ankle Surgery
DX: M86.171 Other acute osteomyelitis, right ankle and foot (principal); M86.671 Other chronic osteomyelitis, right ankle and foot; E66.01 Morbid (severe) obesity due to excess calories; Z68.41 Body mass index [BMI] 40.0-44.9, adult
CPT/HCPCS: 73620; 82947; 87070; 87075; 87077; 87081; 87101; 87185; 87186; 87205